=== PATIENT | female | born 1980 | race Caucasian/White ===

== ENCOUNTER 2019-06-16 15:10 | Emergency (ER) | payer OTHER, SELFPAY ==
[2019-06-16 15:21] VITALS: BP 134/79; PULSE 132; RESP 20; TEMP 37.8; O2SAT 99
--- NOTE | 2019-06-16 15:38 | ED.URI ---
HPI - URI/Sore Throat General Chief Complaint: Upper Respiratory Infection Stated Complaint: Flu like symptoms Time Seen by Provider: 06/16/19 15:41 Source: patient and RN notes reviewed Mode of arrival: ambulatory Limitations: no limitations History of Present Illness HPI Narrative: 38-year-old female who presents to [facility] care with complaints of cough, body aches which started last pm with chills and fevers starting this am around 9. Patient states that cough kept her awake almost all night and she has some discomfort in her mid chest area from coughing with tightness to chest with cough. Patient has decreased breath sounds on auscultation, denies any known wheezing, denies any acute dyspnea at rest or with exertion, SAO2 99% on room air. Patient denies any radiation of pain to her back, jaw, or arm, states pain in chest only with cough, denies any diaphoresis or nausea. MD elicited complaint: cough Onset (ago): day(s) (1) Consistency: progressively worsening Severity: mild (3) Pain scale (0-10): 3 Description of mucous: other (dry) Able to tolerate fluids by mouth: Yes Exacerbating factors: deep breaths Relieving factors: nothing Associated symptoms: fever, chills, cough and chest pain (chest tightness and discomfort with cough) Treatments prior to arrival: ibuprofen and cold medicine Related Data Allergies Allergy/AdvReac Type Severity Reaction Status Date / Time No Known Allergies Allergy Verified 06/16/19 15:34 Review of Systems Review of Systems: Narrative: CONSTITUTIONAL:reports fever, chills, or sweats. EYES: Denies visual changes, redness, or discharge. ENT: Clear rhinorrhea,no congestion, sore throat, or otalgia. CARDIOVASCULAR: reports tightness and chest pain with cough,denies palpitations, or edema. RESPIRATORY:Positive cough denies dyspnea. GASTROINTESTINAL: Denies abdominal pain, nausea, vomiting, or diarrhea. GENITOURINARY: Denies dysuria or hematuria. SKIN: Denies rash or itching. MUSCULOSKELETAL: Denies back pain, joint pain, reports body aches NEUROLOGIC: Denies headache, numbness, or weakness. PSYCHIATRIC: Denies anxiety or depression. All systems reviewed & are unremarkable except as noted in HPI and below [facility] Social History Social History (Updated 06/19/19 @ 11:16 by Kelin Mckenzie NP) Smoking status: Never smoker Living arrangements: with family Gender identity (if verbalized by the patient): Female Comments At time of signature, agree with nursing past medical, surgical, social and family history. There is no relevant family history pertinent to the presenting complaint Exam Narrative: Exam Narrative: GENERAL: Well-appearing, well-nourished, and in no acute distress. HEAD: Normocephalic, atraumatic. EYES: PERRLA and EOMI. ENT: Nares red clear rhinorrhea no epistaxis. Mucous membranes moist.TM;s normal with good light reflex, throat has redness with no tonsil swelling or redness, post nasal drainage noted. NECK: Supple.No lymphadenopathy CHEST:Decreased to auscultation. No respiratory distress.Dry cough,SaO2 99% HEART: Regular rate and rhythm. No murmur heard. Normal peripheral pulses. ABDOMEN: Soft, nontender, nondistended, normal active bowel sounds. EXTREMITIES: Normal range of motion. No edema. SKIN: Warm, dry, no rash. NEURO: No focal deficits. Alert and oriented x3. Course Vital Signs Vital signs: Vital Signs Temperature 37.8 C H 06/16/19 15:21 Pulse Rate 132 H 06/16/19 15:21 Respiratory Rate 20 06/16/19 15:21 Blood Pressure 134/79 06/16/19 15:21 Pulse Oximetry 99 06/16/19 15:21 Temperature 37.8 C H 06/16/19 15:21 Pulse Rate 132 H 06/16/19 15:21 Respiratory Rate 20 06/16/19 15:21 Blood Pressure 134/79 06/16/19 15:21 Pulse Oximetry 99 06/16/19 15:21 MDM - URI/Sore Throat Differential Diagnosis Differential diagnosis: Likely upper respiratory infection, viral infection, influenza and other (cough) Medical Records Attestation: I reviewe
== END 2019-06-16 16:05 | disposition home or self-care (01) ==
PROVIDERS: Emergency Provider Registered Nurse
DX: J06.9 Acute upper respiratory infection, unspecified (principal)
CPT/HCPCS: 87804; 99203; G0463